=== PATIENT | female | born 1960 | race Caucasian/White ===

== ENCOUNTER 2025-05-10 21:32 | Inpatient (IN) | payer OTHER ==
[~2025-05-10] VITALS: Ht 157.5 cm; Wt 99.3 kg
[2025-05-10] MEDS ORDERED: Albuterol 2.5 MG/3 ML VIAL INH SCH (21:45)
[2025-05-10 22:04] LABS: BASOPHILS ABSOLUTE AUTO 0.04 K/mm3 (0.00-0.23); BASOPHILS PERCENT AUTO 1 % (0-2); EOSINOPHILS ABSOLUTE AUTO 0.13 K/mm3 (0.00-0.68); EOSINOPHILS PERCENT AUTO 2 % (0-6); Hematocrit 44.4 % (33.0-51.0); Hemoglobin 14.7 g/dL (11.5-16.0); IMMATURE GRAN ABSOLUTE AUTO 0.04 K/mm3 (0.00-0.10); IMMATURE GRAN PERCENT AUTO 1 % (0-1); LYMPHOCYTES ABSOLUTE AUTO 2.03 K/mm3 (0.84-5.20); LYMPHOCYTES PERCENT AUTO 24 % (21-46); MONOCYTES ABSOLUTE AUTO 0.50 K/mm3 (0.16-1.47); MONOCYTES PERCENT AUTO 6 % (4-13); Mean Corpuscular HGB Conc 33.1 g/dL (31.5-36.5); Mean Corpuscular Volume 102 fL (80-100); NEUTROPHILS ABSOLUTE AUTO 5.64 K/mm3 (1.96-9.15); NEUTROPHILS PERCENT AUTO 67 % (41-73); NRBC ABSOLUTE 0.00 K/mm3 (0.00-0.02); NRBC Auto 0.0 /100 WBC (0.0-0.2); Platelet Count 147 K/mm3 (150-400); RDW Coefficient Variation 13.1 % (11.7-14.2); RDW Standard Deviation 49.1 fL (35.1-46.3)
[2025-05-10] MEDS ORDERED: NS 1,000 ML IV ONE (22:05)
[2025-05-10] MEDS ORDERED: NS 1,000 ML IV SCH ×2 (22:05→23:35)
[2025-05-10 22:16] LABS: Alanine Aminotransfer (ALT/SGP 47.0 U/L (12-78); Albumin, Blood 3.6 g/dL (3.4-5.0); Albumin/Globulin Ratio 0.9 (0.8-1.8); Anion Gap 10.0 mmol/L (3-11); Aspartate Aminotrans (AST/SGOT 58.0 U/L (12-37); Bilirubin, Total 0.5 mg/dL (0.1-1.0); Blood Urea Nitrogen 35.0 mg/dL (8-24); CO2, Blood 26.0 mmol/L (21-32); Calcium, Blood 9.6 mg/dL (8.5-10.1); Chloride, Blood 105.0 mmol/L (98-108); Creatinine, Blood 1.53 mg/dL (0.40-1.00); Globulin, Blood 3.8 g/dL (2.2-4.0); Glucose, Blood 132.0 mg/dL (70-99); Potassium, Blood 3.4 mmol/L (3.5-5.5); Sodium, Blood 138.0 mmol/L (136-145); Total Protein, Blood 7.4 g/dL (6.4-8.2)
[2025-05-10 23:12] LABS: pH Blood Venous 7.24 (7.34-7.37)
[2025-05-11] VITALS (48 sets, daily range): BP systolic 97–147; BP diastolic 59–127
[2025-05-11] MEDS ORDERED: Naloxone HCl 0.4MG / ML 1ML Vial ONE ×2 (00:09→04:11)
[2025-05-11] MEDS ORDERED: Naloxone HCl 0.4MG / ML 1ML Vial IV ONE (00:10)
[2025-05-11] MEDS ORDERED: Naloxone HCl 1MG / ML 2ML SYR IV ONE ×2 (00:20→04:10)
[2025-05-11] MEDS ORDERED: Naloxone HCl 1MG / ML 2ML SYR ONE (00:23)
[2025-05-11] MEDS ORDERED: Flumazenil 0.1 MG / ML 5ML Vial ONE ×2 (00:42→03:11)
[2025-05-11] MEDS ORDERED: Flumazenil 0.1 MG / ML 5ML Vial IV ONE ×3 (00:45→04:30)
[2025-05-11] MEDS ORDERED: Potassium Chl 20MEQ/Water100ML 100 ML IV ONE (00:55)
[2025-05-11] MEDS ORDERED: NS 1,000 ML IV SCH (00:55)
[2025-05-11] MEDS ORDERED: Ondansetron HCl 2 MG / ML 2ML Vial IV PRN (01:10)
[2025-05-11] MEDS ORDERED: NS 1,000 ML IV ONE (01:10)
[2025-05-11] MEDS ORDERED: Ipratropium/Albuterol SulF 2.5-0.5MG/3 ML Amp INH PRN (01:10)
[2025-05-11] MEDS ORDERED: FLU VACC TS2025(65UP)/MF59C/PF 45 MCG/0.5 ML SYRINGE IM SCH (01:10)
[2025-05-11 01:32] LABS: pH Blood Venous 7.25 (7.34-7.37)
[2025-05-11] MEDS ORDERED: Sodium Bicarb 8.4% 1 MEQ/ML 50 ML Vial IV ONE (01:40)
[2025-05-11 01:48] LABS: Magnesium, Blood 1.7 mg/dL (1.6-2.4); Phosphorus, Blood 3.8 mg/dL (2.5-4.9)
[2025-05-11] MEDS ORDERED: Mag Sulfate 1 GM/D5% 100ML 100 ML IV STA (02:40)
[2025-05-11] MEDS ORDERED: NS 250 ML IV ONE (03:10)
[2025-05-11] MEDS ORDERED: Metoprolol Tartrate 5 ML IV ONE (03:11)
[2025-05-11] MEDS ORDERED: Metoprolol Tartrate 1 MG/ML 5 ML VIAL IV ONE (03:15)
[2025-05-11 03:38] LABS: pH Blood Venous 7.16 (7.34-7.37)
[2025-05-11 03:54] LABS: Alanine Aminotransfer (ALT/SGP 40.0 U/L (12-78); Albumin, Blood 3.1 g/dL (3.4-5.0); Albumin/Globulin Ratio 0.9 (0.8-1.8); Anion Gap 8.0 mmol/L (3-11); Aspartate Aminotrans (AST/SGOT 43.0 U/L (12-37); Bilirubin, Total 0.3 mg/dL (0.1-1.0); Blood Urea Nitrogen 33.0 mg/dL (8-24); CO2, Blood 25.0 mmol/L (21-32); Calcium, Blood 8.5 mg/dL (8.5-10.1); Chloride, Blood 112.0 mmol/L (98-108); Creatinine, Blood 1.26 mg/dL (0.40-1.00); Globulin, Blood 3.6 g/dL (2.2-4.0); Glucose, Blood 199.0 mg/dL (70-99); Potassium, Blood 3.8 mmol/L (3.5-5.5); Sodium, Blood 141.0 mmol/L (136-145); Total Protein, Blood 6.7 g/dL (6.4-8.2)
[2025-05-11 04:33] LABS: Source, Urine Clean Catch
[2025-05-11] MEDS ORDERED: Flumazenil 0.1 MG / ML 5ML Vial IV PRN (04:40)
[2025-05-11 04:41] LABS: Bilirubin, Urine Neg (Neg); Glucose Qualitative, Urine Neg (Neg); Ketones, Urine Neg (Neg); Leukocyte Esterase, Urine Neg (Neg); Protein, Urine 1+ (Neg); Specific Gravity, Urine 1.020 (1.003-1.022); Urobilinogen, Urine NORM (Normal)
[2025-05-11 04:49] LABS: Color, Urine Yellow (P-Yellow)
--- NOTE | 2025-05-11 05:22 | NUR ---
ADMIT NOTE AND SHIFT SUMMARY PT ARRIVED AT 0036 FROM ED ON BIPAP WITH SAT > 90%. PT OBTUNDED AND NONRESPONSIVE. PT GIVEN FLUMAZENIL 0.4MG WHICH WOKE PT UP AND SHE WAS ORIENTED TO ALL UNTIL BECOMING UNRESPONSIVE AGAIN, EXCEPT FOR PAINFUL STIMULI. DURING THIS TIME PT HEART RATE INCREASED FROM LOW 100'S TO 150-170. ECG PERFORMED WHICH SHOWED A FLUTTER, 2:1. PT GIVEN 5MG METOPROLOL AND PT HR RESPONDED BY DECREASING TO 75-100 AND SINUS RHYTHM. WHERE SHE CURRENTLY STANDS. BP HAS HELD SINCE ARRIVAL. PT GIVEN NS AT 100ML/HR WITH ONE 250 BOLUS, THAT FIRST LITER STILL INFUSING. PT GIVEN 20MEQ OF KCL AND 1G OF MAG SULFATE. PT CONTINUED DECREASED LOC RESULTED IN ONE MORE DOSE OF FLUMAZENIL AND AN ORDER FOR 0.5MG Q 1HR PRN FOR UP TO 4 DOSES. PT ALSO GIVEN 2MG OF NARCAN IV, WHICH DID LITTLE. SECOND DOSE OF FLUMAZENIL WOKE PT UP BRIEFLY. SETTINGS ON BIPAP CHANGED THROUGHOUT FIRST SEVERAL HOURS OF ADMIT, LANDING ON CURRENT SETTINGS OF 18/6/24/50% WITH SAT > 92%. VBG HAS WORSENED SINCE ARRIVAL WITH MOST RECENT AT 0320 SHOWING WORSENING PH AT 7.16 AT INCREASING CO2 AT 69 AND LEVELED HCO3 AT 19. ANOTHER WILL BE DRAWN WITH CMP AND CBC AT 0530. PT ALSO GIVEN AMP OF BICARB AT ABOUT 0200. PT REMAINS DIFFICULT TO AROUSE AND SEEMINGLY CONFUSED WHEN RESPONSIVE. CHUA PLACED AND 825 RETURNED. UA SENT AND RESULTS WNL.
[2025-05-11 05:48] LABS: BASOPHILS ABSOLUTE AUTO 0.01 K/mm3 (0.00-0.23); BASOPHILS PERCENT AUTO 0 % (0-2); EOSINOPHILS ABSOLUTE AUTO 0.01 K/mm3 (0.00-0.68); EOSINOPHILS PERCENT AUTO 0 % (0-6); Hematocrit 37.7 % (33.0-51.0); Hemoglobin 12.5 g/dL (11.5-16.0); IMMATURE GRAN ABSOLUTE AUTO 0.02 K/mm3 (0.00-0.10); IMMATURE GRAN PERCENT AUTO 0 % (0-1); LYMPHOCYTES ABSOLUTE AUTO 0.52 K/mm3 (0.84-5.20); LYMPHOCYTES PERCENT AUTO 9 % (21-46); MONOCYTES ABSOLUTE AUTO 0.04 K/mm3 (0.16-1.47); MONOCYTES PERCENT AUTO 1 % (4-13); Mean Corpuscular HGB Conc 33.2 g/dL (31.5-36.5); Mean Corpuscular Volume 101 fL (80-100); NEUTROPHILS ABSOLUTE AUTO 5.33 K/mm3 (1.96-9.15); NEUTROPHILS PERCENT AUTO 90 % (41-73); NRBC ABSOLUTE 0.00 K/mm3 (0.00-0.02); NRBC Auto 0.0 /100 WBC (0.0-0.2); Platelet Count 103 K/mm3 (150-400); RDW Coefficient Variation 12.9 % (11.7-14.2); RDW Standard Deviation 48.3 fL (35.1-46.3)
[2025-05-11 06:04] LABS: pH Blood Venous 7.23 (7.34-7.37)
[2025-05-11 06:12] LABS: Alanine Aminotransfer (ALT/SGP 39.0 U/L (12-78); Albumin, Blood 3.0 g/dL (3.4-5.0); Albumin/Globulin Ratio 0.9 (0.8-1.8); Anion Gap 8.0 mmol/L (3-11); Aspartate Aminotrans (AST/SGOT 39.0 U/L (12-37); Bilirubin, Total 0.3 mg/dL (0.1-1.0); Blood Urea Nitrogen 29.0 mg/dL (8-24); CO2, Blood 26.0 mmol/L (21-32); Calcium, Blood 8.4 mg/dL (8.5-10.1); Chloride, Blood 111.0 mmol/L (98-108); Creatinine, Blood 1.14 mg/dL (0.40-1.00); Globulin, Blood 3.4 g/dL (2.2-4.0); Glucose, Blood 203.0 mg/dL (70-99); Potassium, Blood 3.7 mmol/L (3.5-5.5); Sodium, Blood 141.0 mmol/L (136-145); Total Protein, Blood 6.4 g/dL (6.4-8.2)
--- NOTE | 2025-05-11 08:40 | NUR ---
PALLIATIVE CARE CONSULT: CONSULT RECEIVED FOR ADVANCED CARE PLANNING AND SYMPTOM MANAGEMENT. REVIEWED MEDICAL RECORD. PT HAS NO POLST/AD ON FILE OR WITH [facility]. PT NOTED TO BE ON BIPAP/OBTUNDED. WAS AT [facility] BEING TREATED FOR ETOH ABUSE AND WAS GOING THROUGH WITHDRAWALS.
[2025-05-11] MEDS ORDERED: Enoxaparin 40 MG/0.4 ML SYR SC SCH (09:00)
[2025-05-11] MEDS ORDERED: Mag Sulfate 1 GM/D5% 100ML 100 ML IV ONE (09:35)
[2025-05-11 09:36] LABS: pH Blood Venous 7.30 (7.34-7.37)
[2025-05-11 15:10] LABS: pH Blood Venous 7.37 (7.34-7.37)
[2025-05-11] MEDS ORDERED: ATOR40TA PO (16:46)
[2025-05-11] MEDS ORDERED: LISI20 PO (16:46)
[2025-05-11] MEDS ORDERED: CHLO25B PO (16:48)
--- NOTE | 2025-05-11 18:16 | NUR ---
SHIFT SUMMARY PT ASLEEP IN BED AT TIME OF BEDSIDE REPORT. PT ON BIPAP AND ABLE TO OPEN EYES WHEN VERABLLY PROMPTED, BUT IS DELAYED IN DOING SO. PT ABLE TO FOLLOW SIMPLE COMMANDS LATER IN AM, MOVES ALL EXTREMITIES SPONTANEOUSLY. PT AWAKE/ALERT AROUND 1300 IN PM, ABLE TO REMOVE BIPAP MASK AND A/OX4, CIWA SCORE 4-8 THROUGH AFTERNOON W/ VISIBLE TREMORS AND HEADACHE. PT ABLE TO SWALLOW PO MEDS W/O DIFFICULTY. NSR ON MONITOR, RUNS OF VFIB THIS MORNING, DR. FERGUSON ORDERED REPLACEMENT MAG/POTASSIUM, NO FURTHER ECTOPY T/O SHIFT. LUNG SOUNDS DIM AND WHEEZY T/O MILLAN, SATURATING >95% ON RA WHILE AWAKE. BREATHS EVEN AND UNLABORED. ABD MILDLY DISTENDED AND SOFT, BOWEL SOUNDS ACTIVE IN ALL QUADRANTS. CHUA CATHETER IN PLACE AND DRAINING TO GRAVITY. SKIN INTACT AND W/O BREAKDOWN.
[2025-05-11 21:44] LABS: pH Blood Venous 7.42 (7.34-7.37)
[2025-05-12] VITALS (20 sets, daily range): BP systolic 96–157; BP diastolic 71–103
[2025-05-12 03:50] LABS: BASOPHILS ABSOLUTE AUTO 0.01 K/mm3 (0.00-0.23); BASOPHILS PERCENT AUTO 0 % (0-2); EOSINOPHILS ABSOLUTE AUTO 0.00 K/mm3 (0.00-0.68); EOSINOPHILS PERCENT AUTO 0 % (0-6); Hematocrit 37.8 % (33.0-51.0); Hemoglobin 12.8 g/dL (11.5-16.0); IMMATURE GRAN ABSOLUTE AUTO 0.08 K/mm3 (0.00-0.10); IMMATURE GRAN PERCENT AUTO 1 % (0-1); LYMPHOCYTES ABSOLUTE AUTO 1.03 K/mm3 (0.84-5.20); LYMPHOCYTES PERCENT AUTO 8 % (21-46); MONOCYTES ABSOLUTE AUTO 0.55 K/mm3 (0.16-1.47); MONOCYTES PERCENT AUTO 4 % (4-13); Mean Corpuscular HGB Conc 33.9 g/dL (31.5-36.5); Mean Corpuscular Volume 99 fL (80-100); NEUTROPHILS ABSOLUTE AUTO 11.45 K/mm3 (1.96-9.15); NEUTROPHILS PERCENT AUTO 87 % (41-73); NRBC ABSOLUTE 0.00 K/mm3 (0.00-0.02); NRBC Auto 0.0 /100 WBC (0.0-0.2); Platelet Count 108 K/mm3 (150-400); RDW Coefficient Variation 13.0 % (11.7-14.2); RDW Standard Deviation 46.4 fL (35.1-46.3)
[2025-05-12 04:05] LABS: Anion Gap 10.0 mmol/L (3-11); Blood Urea Nitrogen 21.0 mg/dL (8-24); CO2, Blood 24.0 mmol/L (21-32); Calcium, Blood 8.5 mg/dL (8.5-10.1); Chloride, Blood 111.0 mmol/L (98-108); Creatinine, Blood 0.83 mg/dL (0.40-1.00); Glucose, Blood 132.0 mg/dL (70-99); Magnesium, Blood 2.2 mg/dL (1.6-2.4); Potassium, Blood 3.9 mmol/L (3.5-5.5); Sodium, Blood 141.0 mmol/L (136-145)
[2025-05-12] MEDS ORDERED: Potassium Chl 20MEQ/Water100ML 100 ML IV ONE (05:55)
[2025-05-12] MEDS ORDERED: LORazepam 2 MG/ML 1ML Injection IV PRN ×3 (07:45)
[2025-05-12] MEDS ORDERED: Ipratropium/Albuterol SulF 2.5-0.5MG/3 ML Amp INH PRN (13:15)
[2025-05-12] MEDS ORDERED: Albuterol 2.5 MG/3 ML VIAL INH PRN (13:15)
[2025-05-12] MEDS ORDERED: Ondansetron HCl 2 MG / ML 2ML Vial IV PRN (15:35)
--- NOTE | 2025-05-12 19:29 | NUR ---
SHIFT SUMMARY PT AWAKE IN BED AT TIME OF BEDSIDE REPORT. PT DROWSY AND ORIENTED TO SELF, SITUATION, AND PLACE. PT TREMULOUS WITH HEADACHE/NAUSEA, CIWA SCORES RANGING FROM 9-14. PT ABLE TO AMBULATE W/ ONE PERSON ASSIST. PT FORGETFUL TO USE CALL LIGHT, BED ALARM IN PLACE. NSR T/O SHIFT, CAP REFILL < SEC, NO NOTED EDEMA, AND MAPS >65. BREATHS SOUNDS WHEEZY/DIM T/O MILLAN, BREATHING TREATMENTS W/ GOOD RESPONSE. BREATHS EVEN AND UNLABORED WHILE AWAKE. APNEIC WHILE SLEEPING. BIPAP IN PLACE WHEN ASLEEP. ABD SOFT AND NONTENDER, BOWEL SOUNDS PRESENT. PT ABLE TO TOLERATE DIET TODAY. CHUA CATHETER IN PLACE AND WAS REMOVED ONCE PATIENT WAS ABLE TO VERBALIZE NEED TO URINATE. PT CONTINENT OF BOWEL AND BLADDER. SKIN INTACT AND W/O BREAKDOWN. SISTER REINIER UPDATED W/ PLAN OF CARE AND CIWA PROTOCOL.
[2025-05-13] VITALS (14 sets, daily range): BP systolic 132–180; BP diastolic 62–156
--- NOTE | 2025-05-13 05:11 | NUR ---
SHIFT SUMMARY PT ALERT AND ORIENTED X3 WITH VARYING CHANGES IN MENTATION DEPENDENT ON CIWA SCORE, SCORES RANGING FROM 8-11 T/O NIGHT WITH PT EXPERIENCING VISUAL AND AUDITORY HALLUCINATIONS, PT IS REDIRECTABLE AND ABLE TO BE CALMED DOWN WHEN NEEDED. PT USES CALL LIGHT APPROPRIATELY MOST OF THE TIME WITH OCASSIOANL ATTEMPTS TO EXIT BED WITHOUT CALLING. PT REMAINS ON RA T/O NIGHT WITH SPO2 >95% AND DENIES ANY SOB. PT SBP IN THE 130-140'S WITH MAP >65 AND HR IN THE 60-70'S. MULTIPLE VOIDS OVERNIGHT, STANDBY ASSIST TO TOILET, NO BM THIS SHIFT. PT HAS JORGE LUIS POWERGLIDE, SALINE LOCKED. PT RECIEVED Q2HR ATIVAN AND 1X DOSE OF LIBRIUM FOR INCREASED CIWA. BED IN LOWEST POSITION, CALL LIGHT WITHIN REACH, NO IMMEDIATE CONCERNS NOTED AT THIS TIME. WILL REPORT TO ONCOMING RN
[2025-05-13 05:38] LABS: BASOPHILS ABSOLUTE AUTO 0.01 K/mm3 (0.00-0.23); BASOPHILS PERCENT AUTO 0 % (0-2); EOSINOPHILS ABSOLUTE AUTO 0.00 K/mm3 (0.00-0.68); EOSINOPHILS PERCENT AUTO 0 % (0-6); Hematocrit 39.6 % (33.0-51.0); Hemoglobin 13.2 g/dL (11.5-16.0); IMMATURE GRAN ABSOLUTE AUTO 0.14 K/mm3 (0.00-0.10); IMMATURE GRAN PERCENT AUTO 1 % (0-1); LYMPHOCYTES ABSOLUTE AUTO 0.99 K/mm3 (0.84-5.20); LYMPHOCYTES PERCENT AUTO 8 % (21-46); MONOCYTES ABSOLUTE AUTO 0.17 K/mm3 (0.16-1.47); MONOCYTES PERCENT AUTO 1 % (4-13); Mean Corpuscular HGB Conc 33.3 g/dL (31.5-36.5); Mean Corpuscular Volume 101 fL (80-100); NEUTROPHILS ABSOLUTE AUTO 10.99 K/mm3 (1.96-9.15); NEUTROPHILS PERCENT AUTO 89 % (41-73); NRBC ABSOLUTE 0.00 K/mm3 (0.00-0.02); NRBC Auto 0.0 /100 WBC (0.0-0.2); Platelet Count 121 K/mm3 (150-400); RDW Coefficient Variation 13.2 % (11.7-14.2); RDW Standard Deviation 49.5 fL (35.1-46.3)
[2025-05-13 06:20] LABS: Anion Gap 11.0 mmol/L (3-11); Blood Urea Nitrogen 20.0 mg/dL (8-24); CO2, Blood 23.0 mmol/L (21-32); Calcium, Blood 8.4 mg/dL (8.5-10.1); Chloride, Blood 108.0 mmol/L (98-108); Creatinine, Blood 0.81 mg/dL (0.40-1.00); Glucose, Blood 155.0 mg/dL (70-99); Magnesium, Blood 2.1 mg/dL (1.6-2.4); Potassium, Blood 4.1 mmol/L (3.5-5.5); Sodium, Blood 138.0 mmol/L (136-145)
--- NOTE | 2025-05-13 07:34 | NUR ---
0700 Assumed care of patient. Patient voiding, one person sba to bathroom. Mildly unsteady on feet. Patient has a tremble to her hands when holding a cup but not when holding others hands or holding out front of her. Patient is afebrile/ vs stable rhythm of pulse sinus in the 60's, one powerglide to left upper arm, sluggish to flush. Linen changed this am and gown changed this am, pt did own marlen care and face washed up. Patient up to chair for breakfast thus far. Patient a little tearful.
[2025-05-13] MEDS ORDERED: Polyethylene Glycol 3350 17 gm PO PRN (09:50)
--- NOTE | 2025-05-13 16:31 | NUR ---
UPDATE PATIENT HAS BEEN VERY ACTIVE THIS AFTERNOON. SHE HAS WANDERED OUT OF HER ROOM GOING THROUGH THE UNIT. SHE STATED SHE WANTED TO GO "BOBSLEDDING". PATIENT HAS ALSO BEEN VERY TEARFUL ALL DAY, CRYING AT THE DROP OF THE HAT AT WASHING HER FACE, AT SETTING UP HER MEALS, AT GETTING ADULT COLORING ACTIVITIES FOR HER. SHE REALLY WANTS TO GO HOME BUT IS STILL HALLUCINATING AND MAKING UP STORIES OF PEOPLE AND SITUATIONS. SHE HAS BEEN GIVEN ATIVAN Q2 TO Q3 HR ALL DAY. SHE DID DO HER ADL'S ON HER OWN WITH ONLY ASSIT AT SET UP FOR THEM.
--- NOTE | 2025-05-13 17:57 | NUR ---
END OF SHIFT ARTEMIO HAS BEEN VERY ACTIVE TODAY. SHE HAS BEEN OUT OF BED TO CHAIR AND INTHE HALLWAYS WALKING AND BACK TO CHAIR AND BED MULTIPLE TIMES. SHE IS STILL HALLUCINATING AND MUMBLING WHEN SHE TALKS OF INTERESTING TOPICS THAT DO NOT PERTAIN TO SITUATION ALL THE TIME. SHE HAS BEEN GIVEN ATIVAN 2MG PO THROUGHOUT THE DAY. HER CIWA HAS BEEN 9-16 . SHE STILL HAS SOME TREMORS BUT LESS THAN THIS MORNING. SHE HAS ONE POWERGLIDE TO LEFT UPPER ARM. DRESSING INTACT AND COBAND ON IT TO HOLD TUBING IN PLACE PROPERLY. IT IS POSITIONAL WHEN FLUSHING AND RUNNING MEDS THROUGH IT. PT VS HAVE BEEN STABLE, SHE IS GETTING HER BP MEDICATION NOW. SHE IS EAGER TO LEAVE THIS HOSPITAL BUT NO PLAN FOR AFTER TREATMENT HERE.
--- NOTE | 2025-05-13 21:14 | NUR ---
ASSUMPTION OF CARE PT ARRIVED TO PCU VIA WHEELCHAIR AROUND 1957. PT STOOD AND TRANSFERED TO PCU BED WITH 2 PERSON SBA, FOR UNSTEADY GAIT. PT ALERT, OREINTED TO SELF, PLACE, YEAR. CIWAS PER PROTOCOL, CIWA OF 12. PT IS CONFUSED AT TIMES AND DOES NTO MAKE SENSE AT TIMES. BED ALARM ON. HR IN THE 70'S, SR, SHE DENIES ANY CP/PRESSURE, NUMB/TINGLING. SBP STABLE. PT ON RA, SpO2 >92%. SHE DENIES ANY SOB. PT SITTING IN BED AT THIS TIME. CALL LIGHT IN REACH.
[2025-05-14 05:04] VITALS: BP 142/83
--- NOTE | 2025-05-14 06:12 | NUR ---
SHIFT SUMMARY PT ALERT, ORIENTED TO NAME/, YEAR, SITUATION. T/O NIGHT PT BECAME INCREASINGLY AGITATED UNABLE TO REDIRECT. CIWAS RANGING FROM 12-17, MEDICATED PER EMAR. PTS HR IN THE 70'S-80'S, SR. SHE DENIES ANY CP/PRESSURE, NUMB/TINGLING, SBP STABLE. PT ON RA, SpO2 >92%, SHE DENIES ANY SOB. PT UP TO BSC WITH 2PA. THIS RN WENT TO PTS ROOM THIS AM TO GET PTS BLOOD PRESSURE AND GET HER BLOOD. THE PT BECAME INCREASINGLY AGITATED. PT STATED IM GOING TO LEAVE AND PT CALLING THIS RN NAMES. EDUCATED PT ON THE RISKS OF LEAVING AMA. PT AGREED TO GET BACK IN BED AT THIS TIME. PT SITTING IN BED AT THIS TIME. WILL MONITOR PT AND REPORT TO ONCOMING RN.
[2025-05-14 08:17] VITALS: BP 154/86
[2025-05-14 10:35] LABS: BASOPHILS ABSOLUTE AUTO 0.01 K/mm3 (0.00-0.23); BASOPHILS PERCENT AUTO 0 % (0-2); EOSINOPHILS ABSOLUTE AUTO 0.03 K/mm3 (0.00-0.68); EOSINOPHILS PERCENT AUTO 0 % (0-6); Hematocrit 40.1 % (33.0-51.0); Hemoglobin 13.5 g/dL (11.5-16.0); IMMATURE GRAN ABSOLUTE AUTO 0.22 K/mm3 (0.00-0.10); IMMATURE GRAN PERCENT AUTO 2 % (0-1); LYMPHOCYTES ABSOLUTE AUTO 3.21 K/mm3 (0.84-5.20); LYMPHOCYTES PERCENT AUTO 24 % (21-46); MONOCYTES ABSOLUTE AUTO 0.90 K/mm3 (0.16-1.47); MONOCYTES PERCENT AUTO 7 % (4-13); Mean Corpuscular HGB Conc 33.7 g/dL (31.5-36.5); Mean Corpuscular Volume 100 fL (80-100); NEUTROPHILS ABSOLUTE AUTO 8.88 K/mm3 (1.96-9.15); NEUTROPHILS PERCENT AUTO 67 % (41-73); NRBC ABSOLUTE 0.00 K/mm3 (0.00-0.02); NRBC Auto 0.0 /100 WBC (0.0-0.2); Platelet Count 130 K/mm3 (150-400); RDW Coefficient Variation 13.3 % (11.7-14.2); RDW Standard Deviation 49.0 fL (35.1-46.3)
[2025-05-14 10:54] LABS: Anion Gap 8.0 mmol/L (3-11); Blood Urea Nitrogen 25.0 mg/dL (8-24); CO2, Blood 29.0 mmol/L (21-32); Calcium, Blood 9.0 mg/dL (8.5-10.1); Chloride, Blood 107.0 mmol/L (98-108); Creatinine, Blood 0.87 mg/dL (0.40-1.00); Glucose, Blood 81.0 mg/dL (70-99); Potassium, Blood 3.7 mmol/L (3.5-5.5); Sodium, Blood 140.0 mmol/L (136-145)
[2025-05-14 11:57] VITALS: BP 106/78
[2025-05-14] MEDS ORDERED: Naltrexone HCl50 MG PO (15:54)
[2025-05-14] MEDS ORDERED: NALOXONE H (15:55)
[2025-05-14 16:11] VITALS: BP 127/77
--- NOTE | 2025-05-14 16:30 | NUR ---
SHIFT SUMMARY PATIENT A0X3/4 ABLE TO MAKE NEEDS KNWON SHE DENIES CP AND SOB SHE IS A SBA WITH FWW SHE IS ON CIWA AND IS TREATED PER AUG.
--- NOTE | 2025-05-14 17:59 | NUR ---
THIS RN TO TAKE OVER PRIMARY CARE FROM 1630-APPROX 1900. NO ACUTE CHANGES. PT REMAINS A/OX3-4 REDIRECTABLE AND COOPERATIVE WITH CARE. SHE IS IND IN ROOM WITH FWW ON RA AND TELE. SHE REPORTS HEADACHE BUT DENIES OTHER S/SX OF WITHDRAWAL. CALL LIGHT IN REACH, CARE CONTINUES
[2025-05-14 19:48] VITALS: BP 134/87
[2025-05-14 22:57] VITALS: BP 148/91
[2025-05-15 03:35] VITALS: BP 127/77
--- NOTE | 2025-05-15 04:06 | NUR ---
SHIFT SUMMARY: PATIENT IS A&OX3-4, INTERMITTENTLY FORGETS WHAT THE DATE IS, BUT IS EASILY REORIENTED AND COOPERATIVE WITH CARE. BED ALARM ON A SAFETY PRECAUTION. FLIGHT CREW TIME CLERK JARAD SAYS PATIENTS RHYTHM WAS SINUS RHYTHM - SINUS FAUSTINO WITH HR BETWEEN 50'S-70'S BPM. PATIENTS LOWEST CIWA HAS BEEN 3 WITH THE HIGHEST BEING 15 WITH PATIENT MEDICATED PER EMAR PROTOCOL ORDERS. PATIENT IS LAYING IN BED WITH CALL LIGHT IN REACH. PATIENT IS ABLE TO MAKE HER NEEDS KNOWN AND CALLS APPROPRIATELY.
[2025-05-15 04:10] LABS: BASOPHILS ABSOLUTE AUTO 0.04 K/mm3 (0.00-0.23); BASOPHILS PERCENT AUTO 0 % (0-2); EOSINOPHILS ABSOLUTE AUTO 0.04 K/mm3 (0.00-0.68); EOSINOPHILS PERCENT AUTO 0 % (0-6); Hematocrit 41.5 % (33.0-51.0); Hemoglobin 13.9 g/dL (11.5-16.0); IMMATURE GRAN ABSOLUTE AUTO 0.24 K/mm3 (0.00-0.10); IMMATURE GRAN PERCENT AUTO 2 % (0-1); LYMPHOCYTES ABSOLUTE AUTO 2.66 K/mm3 (0.84-5.20); LYMPHOCYTES PERCENT AUTO 25 % (21-46); MONOCYTES ABSOLUTE AUTO 0.81 K/mm3 (0.16-1.47); MONOCYTES PERCENT AUTO 8 % (4-13); Mean Corpuscular HGB Conc 33.5 g/dL (31.5-36.5); Mean Corpuscular Volume 100 fL (80-100); NEUTROPHILS ABSOLUTE AUTO 6.90 K/mm3 (1.96-9.15); NEUTROPHILS PERCENT AUTO 65 % (41-73); NRBC ABSOLUTE 0.03 K/mm3 (0.00-0.02); NRBC Auto 0.3 /100 WBC (0.0-0.2); Platelet Count 136 K/mm3 (150-400); RDW Coefficient Variation 13.2 % (11.7-14.2); RDW Standard Deviation 48.6 fL (35.1-46.3)
[2025-05-15 04:28] LABS: Anion Gap 7.0 mmol/L (3-11); Blood Urea Nitrogen 28.0 mg/dL (8-24); CO2, Blood 30.0 mmol/L (21-32); Calcium, Blood 9.0 mg/dL (8.5-10.1); Chloride, Blood 106.0 mmol/L (98-108); Creatinine, Blood 0.86 mg/dL (0.40-1.00); Glucose, Blood 83.0 mg/dL (70-99); Potassium, Blood 4.2 mmol/L (3.5-5.5); Sodium, Blood 139.0 mmol/L (136-145)
[2025-05-15 07:28] VITALS: BP 124/82
[2025-05-15] MEDS ORDERED: AMLODIPINE BES2.5 MG PO (08:22)
[2025-05-15] MEDS ORDERED: ALBU90OI INH (10:22)
[2025-05-15] MEDS ORDERED: Nicoderm Cq1 EAC1 TOP (10:22)
[2025-05-15] MEDS ORDERED: MIRALAX17 GM PO (10:22)
[2025-05-15] MEDS ORDERED: METO25 PO (10:22)
--- NOTE | 2025-05-15 11:29 | NUR ---
PT TX FROM PCU 10 TO ROOM 313- PT ALERT AND ORIENTED X3-4, TEARFUL AND VERY EMOTIONAL. WILL EVAL CIWA AND TX ACCORDINGLY. PT ORIENTED TO ROOM SET UP AND CALL LIGHT AND SAFETY. PLAN TO TO TO RESIDENTIAL [facility] AROUND NOON.
--- NOTE | 2025-05-15 16:29 | NUR ---
PT DISCHARGED WITH INSTRUCTION 1250- WHEELCHAIR ESCORT FOR TRANSPORTATION TO [place] TO [facility] RESIDENTIAL. MEDICATED WITH ATIVAN PRIOR TO DC FOR CIWA 8. SENT WITH [employer].
== END 2025-05-15 13:30 | disposition home health service (06) | DRG 189 ==
LOC: ER 21:32 → ICUE 21:33 → ERHOLD 21:33 → ICUE 21:33 → ERHOLD 05-11 00:35 → ICUE 05-11 00:35 → PCU 05-11 07:29 → ICUE 05-11 07:30 → PCU 05-13 20:01 → ENPENDDIS 05-15 10:16 → MEDS 05-15 11:11
PROVIDERS: Emergency Medicine; Internal Medicine Critical Care Medicine; Student in an Organized Health Care Education/Training Program; ADMIT Internal Medicine
PROC: 5A09357 Assistance with Respiratory Ventilation, Less than 24 Consecutive Hours, Continuous Positive Airway Pressure (ICD-10-PCS; principal; 2025-05-11)
DX: J96.01 Acute respiratory failure with hypoxia (principal); G92.8 Other toxic encephalopathy; N17.9 Acute kidney failure, unspecified; J44.1 Chronic obstructive pulmonary disease with (acute) exacerbation; I48.92 Unspecified atrial flutter; I47.21 Torsades de pointes; R44.0 Auditory hallucinations; E87.4 Mixed disorder of acid-base balance; F10.230 Alcohol dependence with withdrawal, uncomplicated; I10 Essential (primary) hypertension; J96.02 Acute respiratory failure with hypercapnia; F17.210 Nicotine dependence, cigarettes, uncomplicated; E87.6 Hypokalemia; D69.6 Thrombocytopenia, unspecified; E86.0 Dehydration; I48.91 Unspecified atrial fibrillation; K59.00 Constipation, unspecified; T42.4X5A Adverse effect of benzodiazepines, initial encounter; E83.42 Hypomagnesemia; G47.33 Obstructive sleep apnea (adult) (pediatric); E78.5 Hyperlipidemia, unspecified; R44.1 Visual hallucinations; Z88.7 Allergy status to serum and vaccine
CPT/HCPCS: 36415; 71045; 76770; 80048; 80053; 82803; 83605; 83735; 83880; 84100; 84484; 85025; 93005; 93010; 93306; 94640; 94660; 94664; 94760; 94762; 96361; 96365; 96366; 96368; 96374; 96375; 96376; 97112; 97116; 97161; 97530; 99285-25; A9270; C1751; G0378; J1650; J2060; J2312; J2405; J2919; J3411; J3475; J3480; J7030; J7050; J7512